=== PATIENT | female | born 1950 | race Two or more races ===

== ENCOUNTER 2017-06-11 11:06 | Inpatient (IN) | payer OTHER ==
[~2017-06-11] VITALS: Ht 165.1 cm; Wt 46.3 kg
[~2017-06-11 11:06] MED LIST: TRIA50TA2
[2017-06-11] MEDS ORDERED: PANTOPRAZOLE 40 MG/10 ML VIAL IV ONE ×2 (13:00→18:45)
[2017-06-11] MEDS ORDERED: HYDROmorphone HCL 2 MG/ML VL IV ONE (13:00)
[2017-06-11] MEDS ORDERED: SODIUM CHLORIDE 0.9% 1,000 ML IV ONE (13:00)
[2017-06-11 13:09] LABS: Hematocrit 21.8 % (36.0-46.0); Mean Corpuscular Hemoglobin 22.8 pg (28.0-32.0); Mean Corpuscular Hgb Conc. 30.3 g/dL (32.0-36.0); Mean Corpuscular Volume 75.1 fL (80.0-100.0); Platelet Count (auto) 163 10^3/uL (140-450); Red Cell Distribution Width 18.3 % (11.8-14.3); White Blood Cell 13.1 10^3/uL (4.4-10.8)
[2017-06-11 13:26] LABS: Chloride 98 mmol/L (98-107); Potassium 3.5 mmol/L (3.5-5.1); Sodium 132 mmol/L (136-145)
[2017-06-11 13:27] LABS: Hemoglobin 6.6 g/dL (12.2-16.2)
[2017-06-11 13:29] LABS: Band Neutrophils % (manual) 0; Basophils % (manual) 0 (0.0-2.0); Blast Cells 0; Eosinophils % (manual) 0 (0-7); Metamyelocytes % 0; Myelocytes % 0; Promyelocytes % 0; Reactive Lymphocytes 0
[2017-06-11 13:30] LABS: Alanine Aminotransferase 8 U/L (13-56); Albumin 1.6 g/dL (3.4-5.0); Amylase 80 U/L (25-115); Anion Gap 14 (5-15); Aspartate Aminotransferase 90 U/L (15-37); BUN/Creatinine Ratio 33.1; Blood Urea Nitrogen 42 mg/dL (7-18); Calcium 8.3 mg/dL (8.5-10.1); Carbon Dioxide 20 mmol/L (21-32); GFR African American 54 mL/min; GFR Non-African American 44 mL/min; Glucose 70 mg/dL (74-106); Lipase 229 U/L (73-393)
[2017-06-11 13:35] LABS: Alkaline Phosphatase 272 U/L (45-117); Bilirubin, Total 3.2 mg/dL (0.2-1.0); Total Protein 6.5 g/dL (6.4-8.2)
[2017-06-11 14:03] LABS: INR 1.53 (0.9-1.15); Partial Thromboplastin Time 41.1 sec (22.64-33.71); Prothrombin Time 16.7 sec (9.37-12.3)
[2017-06-11 14:18] LABS: Lymphocytes % (manual) 3 (10.0-50.0); Monocytes % (manual) 4 (0-12)
[2017-06-11] MEDS ORDERED: cefTRIAXone 1GM/50ML D5W 50 ML IV ONE (15:45)
[2017-06-11] MEDS ORDERED: TEMAZEPAM 15 MG CAP PO PRN (18:45)
[2017-06-11] MEDS ORDERED: MORPHINE SULFATE 10 MG/ML INJ 1ML SDV IV PRN ×2 (18:45)
[2017-06-11] MEDS ORDERED: PROMETHAZINE HCL 25 MG/ML 1ML IV PRN (18:45)
[2017-06-11] MEDS ORDERED: NITROGLYCERIN 0.4 MG SL TAB SL PRN (18:45)
[2017-06-11] MEDS ORDERED: ACETAMINOPHEN 500 MG TAB PO PRN (18:45)
[2017-06-11] MEDS ORDERED: HYDROcodone-ACET 5/325MG TAB PO PRN (18:45)
[2017-06-11] MEDS ORDERED: LORazepam 0.5 MG TAB PO PRN (18:45)
[2017-06-11] MEDS: SODIUM CHLORIDE 0.9% 1,000 ML IV SCH (18:55)
[2017-06-11] MEDS ORDERED: metroNIDAZOLE 500MG/100ML 100 ML IV ONE (19:00)
[2017-06-11 20:20] VITALS: BP 127/63
[2017-06-11] MEDS: FERROUS SULFATE 325 MG TAB PO SCH (22:22)
[2017-06-12] VITALS (7 sets, daily range): BP systolic 103–133; BP diastolic 53–63
[2017-06-12 01:28] LABS: Hematocrit 19.8 % (36.0-46.0)
[2017-06-12 01:31] LABS: Hemoglobin 5.9 g/dL (12.2-16.2)
[2017-06-12] MEDS: SODIUM CHLORIDE 0.9% 1,000 ML IV SCH (05:33)
[2017-06-12] MEDS: metroNIDAZOLE 500MG/100ML 100 ML IV SCH ×3 (05:38→11:24)
[2017-06-12] MEDS: FERROUS SULFATE 325 MG TAB PO SCH ×2 (05:38→13:25)
[2017-06-12 05:42] LABS: White Blood Cell 13.1 10^3/uL (4.4-10.8)
[2017-06-12 05:46] LABS: Hematocrit 19.6 % (36.0-46.0); Mean Corpuscular Hemoglobin 22.8 pg (28.0-32.0); Mean Corpuscular Volume 75.9 fL (80.0-100.0); Platelet Count (auto) 134 10^3/uL (140-450); Red Blood Cells 2.58 10^6/uL (4.0-5.20); Red Cell Distribution Width 18.5 % (11.8-14.3)
[2017-06-12 05:53] LABS: Hemoglobin 5.9 g/dL (12.2-16.2)
[2017-06-12 05:54] LABS: Band Neutrophils % (manual) 0; Basophils % (manual) 0 (0.0-2.0); Blast Cells 0; Eosinophils % (manual) 0 (0-7); Metamyelocytes % 0; Myelocytes % 0; Promyelocytes % 0; Reactive Lymphocytes 0
[2017-06-12 05:57] LABS: Albumin 1.5 g/dL (3.4-5.0); BUN/Creatinine Ratio 33.3; Bilirubin, Total 2.9 mg/dL (0.2-1.0); Calcium 7.7 mg/dL (8.5-10.1); Potassium 3.5 mmol/L (3.5-5.1); Total Protein 6.3 g/dL (6.4-8.2)
[2017-06-12 06:45] LABS: Lymphocytes % (manual) 6 (10.0-50.0); Monocytes % (manual) 5 (0-12)
[2017-06-12] MEDS ORDERED: CARV12.544 PO (07:49)
[2017-06-12] MEDS ORDERED: AMLO5TAB2 PO (07:49)
[2017-06-12] MEDS ORDERED: LISI-646 PO (07:49)
[2017-06-12 08:29] LABS: Urine Bacteria FEW /hpf (None Seen); Urine Blood 3+ /uL (Negative); Urine Specific Gravity 1.012 (1.001-1.035); Urine WBC 14 /hpf (0 - 5)
[2017-06-12] MEDS ORDERED: cefTRIAXone 1GM/50ML D5W 50 ML IV SCH (09:00)
[2017-06-12] MEDS ORDERED: PANTOPRAZOLE 40 MG TAB PO SCH (10:00)
[2017-06-12] MEDS ORDERED: LEVOFLOXACIN 500 MG TAB PO ONE (12:30)
[2017-06-12] MEDS ORDERED: FER325T PO (12:34)
[2017-06-12] MEDS ORDERED: CAR3125T PO (12:34)
[2017-06-12] MEDS ORDERED: LEVO250T45 PO (12:34)
== END 2017-06-12 18:26 | disposition hospice, home (50) | DRG 682 ==
LOC: ER 11:06 → EDBD 11:06 → TELE 11:07 → DOU IN ICU 20:14
PROVIDERS: ADMIT Internal Medicine; ATTEND Internal Medicine
DX: N17.9 Acute kidney failure, unspecified (principal); E43 Unspecified severe protein-calorie malnutrition; J90 Pleural effusion, not elsewhere classified; C79.72 Secondary malignant neoplasm of left adrenal gland; R18.8 Other ascites; R64 Cachexia; K75.9 Inflammatory liver disease, unspecified; Z68.1 Body mass index [BMI] 19.9 or less, adult; N39.0 Urinary tract infection, site not specified; K80.20 Calculus of gallbladder without cholecystitis without obstruction; D64.9 Anemia, unspecified; E86.0 Dehydration; D72.829 Elevated white blood cell count, unspecified; I10 Essential (primary) hypertension; K57.30 Diverticulosis of large intestine without perforation or abscess without bleeding; N20.0 Calculus of kidney; Z82.49 Family history of ischemic heart disease and other diseases of the circulatory system; Z83.3 Family history of diabetes mellitus; Z85.038 Personal history of other malignant neoplasm of large intestine; Z92.21 Personal history of antineoplastic chemotherapy; Z92.3 Personal history of irradiation; I70.0 Atherosclerosis of aorta; N28.9 Disorder of kidney and ureter, unspecified
CPT/HCPCS: 36415; 71010; 74176; 80053; 81001; 82150; 83690; 84484; 85007; 85014; 85018; 85025; 85027; 85045; 85610; 85730; 86850; 86900; 86901; 86920; 87040; 87081; 87086; 93005; 96361; 96365; 96375; 99291; C9113; J0696; J3490